=== PATIENT | female | born 1985 | race Two or more races ===

== ENCOUNTER → 2021-03-21 | Day surgery (SDC) | payer MEDICAID ==
[2021-03-20 14:31] LABS: Basophils # (auto) 0 10 ^3/uL (0-0.2); Eosinophils # (auto) 0.1 10 ^3/uL (0-0.8); Hemoglobin 8.9 g/dL (12.2-16.2); Mean Corpuscular Volume 77.2 fL (80.0-100.0); Monocytes # (auto) 0.6 10 ^3/uL (0-1.3); Neutrophils # (auto) 5.9 10 ^3/uL (1.6-8.6); White Blood Cell 8.2 10^3/uL (4.4-10.8)
[2021-03-20 14:33] LABS: Basophils % (auto) 0.4 % (0.0-2.0); Eosinophils % (auto) 0.8 % (0.0-7.0); Hematocrit 27.9 % (36.0-46.0); Lymphocytes # (auto) 1.6 10 ^3/uL (0.4-5.4); Lymphocytes % (auto) 18.9 % (10.0-50.0); Mean Corpuscular Hemoglobin 24.6 pg (28.0-32.0); Mean Corpuscular Hgb Conc. 31.9 g/dL (32.0-36.0); Monocytes % (auto) 7.6 % (0.0-12.0); Neutrophils % (auto) 72.3 % (37.0-80.0); Red Blood Cells 3.62 10^6/uL (4.0-5.20); Red Cell Distribution Width 15.9 % (11.8-14.3)
[2021-03-20 14:58] LABS: Urine Bacteria NONE SEEN /hpf (None Seen); Urine Blood 1+ /uL (Negative); Urine Hyaline Cast FEW /lpf (0 - 2); Urine Specific Gravity 1.014 (1.001-1.035); Urine WBC 4 /hpf (0 - 5)
[2021-03-20 15:54] LABS: Albumin 3.2 g/dL (3.4-5.0); Calcium 8.4 mg/dL (8.5-10.1); Potassium 3.8 mmol/L (3.5-5.1)
[2021-03-20 15:59] LABS: BUN/Creatinine Ratio 8.7; Bilirubin, Total 0.3 mg/dL (0.2-1.0); Total Protein 6.9 g/dL (6.4-8.2)
[~2021-03-21] VITALS: Ht 172.7 cm; Wt 86.2 kg
[~2021-03-21] MED LIST: BUPIVACAINE 0.25% INJ 50ML VIAL ONE; DexAMETHasone SOD PHOS 10MG/1ML VIAL INJ ONE; HYDROmorphone HCL 2 MG/ML VL IV PRN; LABETALOL HCL 5 MG/ML 4ML SYRINGE IV PRN; LIDOCAINE W/ EPINEPHRINE 1% 20ML VIAL ONE; MEPERIDINE HCL (25 MG/ML) 1ML VIAL ONE; MIDAZOLAM HCL 2MG/2ML 2ml VIAL (1mg/ml) IV PRN; MIDAZOLAM HCL 2MG/2ML 2ml VIAL (1mg/ml) ONE; MORPHINE SULFATE 4 MG/ML SYR/VIAL IV PRN; ONDANSETRON HCL 4 MG/2 ML VIAL IV PRN; PROPOFOL 10 MG/ML 20 ML IV ONE; ceFAZolin 1GM/50ML 100 ML IV ONE; ePHEDrine SULFATE 50 MG/ML AMP IV PRN; fentaNYL CITRATE 100 MCG/2 ML VL ONE
[2021-03-21 13:00] VITALS: BP 128/73
== END | disposition home or self-care (01) ==
LOC: SUR 09:10
PROVIDERS: ATTEND Surgery
DX: R22.2 Localized swelling, mass and lump, trunk (principal); C44.519 Basal cell carcinoma of skin of other part of trunk; D64.9 Anemia, unspecified; E66.01 Morbid (severe) obesity due to excess calories; Z88.5 Allergy status to narcotic agent; Z79.82 Long term (current) use of aspirin; Z20.822 Contact with and (suspected) exposure to COVID-19
CPT/HCPCS: 11606; 36415; 80053; 81001; 81025; 84702; 85025; 88305; 88342; J0690; J1100; J1170; J2175; J2250; J2405; J2704; J3010; J3490; U0003

== ENCOUNTER 2021-07-06 13:02 | Emergency (ER) | payer MEDICAID ==
[~2021-07-06] VITALS: Ht 172.7 cm; Wt 93.0 kg
[2021-07-06] MEDS ORDERED: CEPH-322 PO (14:13)
[2021-07-06] MEDS ORDERED: HYDR-4902 PO (14:22)
[2021-07-06 15:00] VITALS: BP 138/60
== END 2021-07-06 15:12 | disposition home or self-care (01) ==
LOC: ER 13:08
DX: N76.4 Abscess of vulva (principal); F12.10 Cannabis abuse, uncomplicated; C80.1 Malignant (primary) neoplasm, unspecified; C79.82 Secondary malignant neoplasm of genital organs; Z48.01 Encounter for change or removal of surgical wound dressing
CPT/HCPCS: 87077; 87205

== ENCOUNTER 2021-07-20 08:35 | Emergency (ER) | payer MEDICAID ==
[~2021-07-20] VITALS: Ht 172.7 cm; Wt 93.0 kg
[~2021-07-20 08:35] MED LIST changes: -BUPIVACAINE 0.25% INJ 50ML VIAL ONE; +CEPH-322 PO; -DexAMETHasone SOD PHOS 10MG/1ML VIAL INJ ONE; +HYDR-4902 PO; -HYDROmorphone HCL 2 MG/ML VL IV PRN; -LABETALOL HCL 5 MG/ML 4ML SYRINGE IV PRN; -LIDOCAINE W/ EPINEPHRINE 1% 20ML VIAL ONE; -MEPERIDINE HCL (25 MG/ML) 1ML VIAL ONE; -MIDAZOLAM HCL 2MG/2ML 2ml VIAL (1mg/ml) IV PRN; -MIDAZOLAM HCL 2MG/2ML 2ml VIAL (1mg/ml) ONE; -MORPHINE SULFATE 4 MG/ML SYR/VIAL IV PRN; -ONDANSETRON HCL 4 MG/2 ML VIAL IV PRN; -PROPOFOL 10 MG/ML 20 ML IV ONE; -ceFAZolin 1GM/50ML 100 ML IV ONE; -ePHEDrine SULFATE 50 MG/ML AMP IV PRN; -fentaNYL CITRATE 100 MCG/2 ML VL ONE
[2021-07-20] MEDS ORDERED: SODIUM CHLORIDE 0.9% 1,000 ML IV ONE ×2 (09:00)
[2021-07-20] MEDS ORDERED: cefTRIAXone 1GM/50ML D5W 50 ML IV ONE (09:00)
[2021-07-20 09:38] LABS: Basophils # (auto) 0 10 ^3/uL (0-0.2); Basophils % (auto) 0.3 % (0.0-2.0); Eosinophils # (auto) 0.1 10 ^3/uL (0-0.8)
[2021-07-20 09:40] LABS: Eosinophils % (auto) 0.6 % (0.0-7.0); Hematocrit 29.4 % (36.0-46.0); Hemoglobin 8.8 g/dL (12.2-16.2); Lymphocytes # (auto) 1.6 10 ^3/uL (0.4-5.4); Mean Corpuscular Hemoglobin 18.1 pg (28.0-32.0); Mean Corpuscular Hgb Conc. 29.9 g/dL (32.0-36.0); Mean Corpuscular Volume 60.8 fL (80.0-100.0); Monocytes # (auto) 0.7 10 ^3/uL (0-1.3); Monocytes % (auto) 5.8 % (0.0-12.0); Neutrophils # (auto) 10.1 10 ^3/uL (1.6-8.6); Neutrophils % (auto) 80.3 % (37.0-80.0); Red Blood Cells 4.83 10^6/uL (4.0-5.20); White Blood Cell 12.5 10^3/uL (4.4-10.8)
[2021-07-20 09:55] LABS: Albumin 2.8 g/dL (3.4-5.0); Calcium 9.2 mg/dL (8.5-10.1); Potassium 3.5 mmol/L (3.5-5.1)
[2021-07-20 09:58] LABS: Urine Bacteria FEW /hpf (None Seen); Urine Blood 2+ /uL (Negative); Urine Specific Gravity 1.001 (1.001-1.035); Urine WBC 2 /hpf (0 - 5)
[2021-07-20 10:01] LABS: Red Cell Distribution Width 21.8 % (11.8-14.3)
[2021-07-20 10:12] LABS: BUN/Creatinine Ratio 11.6; Bilirubin, Total 0.3 mg/dL (0.2-1.0)
[2021-07-20] MEDS ORDERED: ONDANSETRON HCL 4 MG/2 ML VIAL IV ONE (11:15)
[2021-07-20] MEDS ORDERED: MORPHINE SULFATE 4 MG/ML SYR/VIAL IV ONE (11:15)
[2021-07-20] MEDS ORDERED: FLUO60TA7 PO (12:43)
[2021-07-20] MEDS ORDERED: ZONI25CA3 PO (12:43)
[2021-07-20] MEDS ORDERED: LIDOCAINE 2% (LOCAL ANESTH.) PF 5ml SDV ONE (12:46)
[2021-07-20] MEDS ORDERED: KETOROLAC TROMETH 30 MG/ML 1ML VIAL IV ONE (13:30)
[2021-07-20 13:49] VITALS: BP 130/76
== END 2021-07-20 13:54 | disposition home or self-care (01) ==
LOC: ER 08:35
DX: L02.416 Cutaneous abscess of left lower limb (principal); F12.10 Cannabis abuse, uncomplicated; Z88.6 Allergy status to analgesic agent
CPT/HCPCS: 10060; 36415; 80053; 81001; 85025; 96361; 96365; 96375; 99284; J0696; J1885; J2001; J2270; J2405; J7030

== ENCOUNTER 2021-11-25 15:21 | Emergency (ER) | payer MEDICAID ==
[~2021-11-25] VITALS: Ht 172.7 cm; Wt 83.9 kg
[~2021-11-25 15:21] MED LIST changes: -CEPH-322 PO; +FLUO60TA7 PO; -HYDR-4902 PO; +ZONI25CA3 PO
[2021-11-25] MEDS ORDERED: cefTRIAXone W LIDOCAINE 1 GM IM IM ONE (15:45)
[2021-11-25] MEDS ORDERED: CEPH-509 PO (15:51)
[2021-11-25] MEDS ORDERED: IBUPROFEN 800 MG TAB PO ONE (17:00)
[2021-11-25] MEDS ORDERED: cefTRIAXone SOD 1,000 MG VL ONE (17:30)
[2021-11-25 17:42] VITALS: BP 122/63
== END 2021-11-25 17:51 | disposition home or self-care (01) ==
LOC: ER 15:21
DX: N73.2 Unspecified parametritis and pelvic cellulitis (principal); Z79.899 Other long term (current) drug therapy; Z88.5 Allergy status to narcotic agent
CPT/HCPCS: 96372; 99283; J0696